=== PATIENT | male | born 1970 | race Caucasian/White ===

== ENCOUNTER 2020-05-25 01:14 | Emergency (ER) | payer OTHER, SELFPAY ==
[2020-05-25 01:20] VITALS: BP 178/81; PULSE 98; RESP 97; TEMP 36.3; O2SAT 98
--- NOTE | 2020-05-25 01:23 | ECG_ITS ---
Measurements Intervals [place] Rate: 94 P: 45 NV: 192 QRS: -24 QRSD: 125 T: 12 QT: 368 QTc: 461 Interpretive Statements SINUS RHYTHM INTRAVENTRICULAR CONDUCTION DELAY LEFT VENTRICULAR HYPERTROPHY AND ST-T CHANGE BASELINE WANDER- I, III, AVL BORDERLINE ECG Electronically Signed On 05-25-2020 6:42:49 CDT by Gui Medina D.O.
[2020-05-25 01:26] VITALS: O2SAT 99
[2020-05-25] MEDS: ASPIRIN 81 MG CHEWABLE TABLET 324 MG PO (01:28)
[2020-05-25 01:37] LABS: Basophils Absolute Auto 0.1 K/mm3 (0.0-0.1); Eosinophils Absolute Auto 0.1 K/mm3 (0-0.3); Hematocrit 48.2 % (42.0-52.0); Hemoglobin 16.1 g/dL (14.0-18.0); Immature Granulocyte Absolute 0.01 K/mm3 (0.00-0.031); Immature Granulocyte Percent A 0.1 % (0-0.5); Lymphocytes Absolute Auto 3.42 K/mm3 (0.9-3.2); Mean Corpuscular HGB Conc 33.4 g/dl (32-36); Mean Corpuscular Hemoglobin 29.9 pg (26-34); Mean Corpuscular Volume 89.4 fl (80-100); Mean Platelet Volume 12.3 fl (7.4-10.4); Monocytes Absolute Auto 0.5 K/mm3 (0.1-0.6); Monocytes Percent Auto 6.9 % (2.6-8.5); Neutrophils Absolute Auto 2.7 K/mm3 (1.3-6.7); Platelet Count Result 120 k/mm3 (150-375); Red Blood Count 5.39 M/mm3 (4.6-6.20); Red Cell Distribution Width 11.9 % (11.5-14.5); White Blood Count 6.8 K/mm3 (4.5-10.0)
[2020-05-25 01:44] LABS: INR 1.1; Prothrombin Time 13.4 Seconds (11.1-14.7)
[2020-05-25 01:45] LABS: Partial Thromboplastin Time 29.8 SECONDS (22.3-36.8)
[2020-05-25 01:46] LABS: Anion Gap 9 mmol/L (8-16); Blood Urea Nitrogen 25 mg/dL (9-20); Calcium 11.2 mg/dL (8.4-10.2); Carbon Dioxide 28 mmol/L (22-30); Chloride 101 mmol/L (98-107); Estimated CRCL calculation 124 ml/min; Estimated Glomerular Filt Rate > 60; Glucose 320 mg/dL (75-110); Potassium 4.3 mmol/L (3.4-5.0); Sodium 138 mmol/L (137-145)
[2020-05-25 02:05] LABS: Troponin I 0.058 ng/mL (0.000-0.034)
[2020-05-25 02:49] VITALS: BP 188/90; PULSE 92; RESP 19; O2SAT 100
--- NOTE | 2020-05-25 03:13 | ED.CHESTPAIN ---
HPI - Chest Pain General Chief Complaint: Chest Pain Stated Complaint: cp Time Seen by Provider: 05/25/20 02:15 Source: patient Mode of arrival: ambulatory Limitations: no limitations History of Present Illness HPI narrative: This patient is a 50 year old male with history DM and CHF who presents for evaluation of chest pain. He states his woke him up this morning because she was crying with chest pain. He was driving her to the hospital and he developed diffuse chest pain . He states he was anxious and both his hands were cold. He also reports sob. He thinks this is all due to him becoming anxious because his was in pain. He has no pain or symptoms currently. He denies cough, fever, or chills. 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 His last stress test was 1.5 years ago . Related Data Allergies Allergy/AdvReac Type Severity Reaction Status Date / Time aluminum hydroxide Allergy Hives Verified 05/25/20 01:31 [From Mylanta] calcium carbonate Allergy Hives Verified 05/25/20 01:31 [From Mylanta] magnesium [From Mylanta] Allergy Hives Verified 05/25/20 01:31 magnesium hydroxide Allergy Hives Verified 05/25/20 01:31 [From Mylanta] simethicone [From Mylanta] Allergy Hives Verified 05/25/20 01:31 Review of Systems Review of Systems: All systems reviewed & are unremarkable except as noted in HPI and below PMFSH Past Medical History Medical History (Updated 05/25/20 @ 07:06 by Anjali Box MD) Congestive heart failure (CHF) Diabetes mellitus Social History Social History Gender identity (if verbalized by the patient): Male Exam Const: General: no acute distress and alert Nutritional Appearance: obese Orientation/consciousness: patient oriented x3 Eyes: EOM: EOMs intact bilaterally Chest: Chest palpation & inspection: normal inspection of the chest Resp: Effort & Inspection: normal respiratory effort and no retractions Auscultation: clear to auscultation bilaterally Cardio: Rate: regular rate Rhythm: regular rhythm Heart sounds: no murmurs GI: GI Palp: Yes Soft to palpation and No Tenderness to palpation present (GI) Auscultation: normal bowel sounds Skin: General skin exam: normal color Rashes: no rashes Neuro: General: patient oriented x3 and moves all extremities Extrem: General: edema Course Reevaluation(s) Reevaluation #1: I Discussed with patient that his troponin was elevated. I recommended for observation since he has history of CHF. Nursing staff states patient is requesting to sign AMA. I discussed risk of AMA such as worsening chf, arrthymia, . He refused chest xray Date: 05/25/20 Time: 03:00 Vital Signs Vital signs: Vital Signs Temperature 97.3 F L 05/25/20 01:20 Pulse Rate 98 05/25/20 01:20 Respiratory Rate 97 H 05/25/20 01:20 Blood Pressure 178/81 H 05/25/20 01:20 Pulse Oximetry 98 05/25/20 01:20 Temperature 97.3 F L 05/25/20 03:32 Pulse Rate 81 05/25/20 03:32 Respiratory Rate 19 05/25/20 03:32 Blood Pressure 165/80 H 05/25/20 03:32 Pulse Oximetry 98 05/25/20 03:32 MDM - Chest Pain Lab Data Attestation: I reviewed the patient's lab results. Result diagrams: 05/25/20 01:25 05/25/20 01:25 Labs: Lab Results 05/25/20 05/25/20 05/25/20 Range/Units 01:25 01:25 01:25 WBC 6.8 (4.5-10.0) K/mm3 RBC 5.39 (4.6-6.20) M/mm3 Hgb 16.1 (14.0-18.0) g/dL Hct 48.2 (42.0-52.0) % MCV 89.4 (80-100) fl MCH 29.9 (26-34) pg MCHC 33.4 (32-36) g/dl RDW 11.9 (11.5-14.5) % Plt Count 120 L (150-375) k/mm3 MPV 12.3 H (7.4-10.4) fl Immature Gran % (Auto) 0.1 (0-0.5) % Neut % (Auto) 40.0 L (45.5-73.1) % Lymph % (Auto) 50.0 H (18.3-44.2) % Clark % (Auto) 6.9 (2.6-8.5) % Eos % (Auto) 2.0 (0-4.4) % Baso % (Auto) 1.0 (0.2-1.2) % Lymph # (Auto) 3.42 H (0.9-3.2) K/mm3 Clark # (Au
[2020-05-25 03:32] VITALS: BP 165/80; PULSE 81; RESP 19; TEMP 36.3; O2SAT 98
== END 2020-05-25 03:34 | disposition left against medical advice (07) ==
PROVIDERS: Emergency Provider General Practice; PCP Internal Medicine
DX: R07.89 Other chest pain (principal); E11.9 Type 2 diabetes mellitus without complications; I50.9 Heart failure, unspecified; R79.89 Other specified abnormal findings of blood chemistry; I45.9 Conduction disorder, unspecified; I51.7 Cardiomegaly
CPT/HCPCS: 36415; 80048; 84484; 85025; 85610; 85730; 93005; 99284; A9270